=== PATIENT | male | born 1965 | race Two or more races ===

== ENCOUNTER 2019-08-30 00:11 | Emergency (ER) | payer OTHER ==
[~2019-08-30] VITALS: Ht 162.6 cm; Wt 49.4 kg
[2019-08-30] MEDS ORDERED: TDAP [DIPH/PERTUSSIS/TET] 0.5 ML VIAL IM ONE ×2 (00:30→00:37)
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
--- NOTE | 2019-08-30 00:40 | NUR ---
LEFT FOR CT
[2019-08-30] MEDS ORDERED: LIDOCAINE 1%-EPI 1:100,000 20 ML VIAL ONE (01:19)
--- NOTE | 2019-08-30 01:35 | NUR ---
RANDI TONY PAC AT THE BED SIDE FOR SUTURING
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
[2019-08-30 02:16] VITALS: BP 129/85
== END 2019-08-30 02:16 | disposition home or self-care (01) ==
LOC: ER 00:15
DX: S01.81XA Laceration without foreign body of other part of head, initial encounter (principal); J45.909 Unspecified asthma, uncomplicated; V49.49XA Driver injured in collision with other motor vehicles in traffic accident, initial encounter; Y93.89 Activity, other specified; Y92.413 State road as the place of occurrence of the external cause; Y99.8 Other external cause status
CPT/HCPCS: 12011; 70450; 90471; 90715; 99284; A6403 ×2; J3490